=== PATIENT | male | born 1955 | race Caucasian/White ===

== ENCOUNTER 2019-01-01 14:28 | Outpatient (CLI) | payer MEDICARE ==
--- NOTE | 2019-01-01 15:43 | CT ---
CT OF ABDOMEN AND PELVIS PERFORMED WITHOUT CONTRAST ENHANCEMENT: Date: 01/01/19 COMPARISON: 03/09/18 study. HISTORY: Abdominal pain and hematuria. History of bladder cancer. Now complaining of left lower quadrant pain. FINDINGS: The lung bases are clear. The liver, spleen, and pancreas regions appear unremarkable. The gallbladder has been removed. Right and left adrenal glands are normal in appearance. 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 Small c yst also seen,stable.There is dilatation of the left collecting system. The degree of dilatation is s lightly more pronounced than on the prior examination, with dilatation of the left ureter again seen all the way to the bladder. Subtle deformity to the posterolateral bladder, probably on the basis of postoperative change. The bladder is not distended, but there is suggestion of some mild wall thicken ing. The fat stranding seen is fairly similar to the prior examination. It tracks along the left psoa s musculature. It becomes slightly more prominent along the left side of the pelvis, and there has be en a development of left-sided pelvic lymphadenopathy. Some nodes that were location in the region of the external iliac chain measured between 8-10 mm on the prior examination, now measure 2.1 and 2.6 cm, respectively. This is associated with some increased fat stranding along the left side of the pel vis and along the left side of the bladder. I do not see a definitive recurrent bladder mass. These c hanges do not appear to be the underlying cause of the increased dilatation of the left collecting sy stem. IMPRESSION: 1. Increased hydronephrosis of the left collecting system of the horseshoe kidney. The dilatation in cludes the left ureter to the ureterovesical junction. It was present on the prior examination, but h as increased since that study. There is some mild diffuse bladder wall thickening, although I do not see a definite focal discrete bladder mass. 2. There has been development of adenopathy within the left external iliac and left inguinal chain a s detailed above suspicious for neoplastic involvement. POS: [facility]
== END 2019-01-01 14:29 | disposition home or self-care (01) ==
LOC: MADRAD 14:28
PROVIDERS: ATTEND Nurse Practitioner Family
DX: R10.32 Left lower quadrant pain (principal); N13.30 Unspecified hydronephrosis; Q63.1 Lobulated, fused and horseshoe kidney; N32.9 Bladder disorder, unspecified; R59.0 Localized enlarged lymph nodes
CPT/HCPCS: 74176

== ENCOUNTER 2019-09-10 13:53 | Outpatient (CLI) | payer MEDICARE ==
--- NOTE | 2019-09-10 14:11 | RAD ---
EXAM: Two views chest PROVIDED CLINICAL HISTORY: Cough and wheezing COMPARISON: 11/16/2014 FINDINGS: There has been interval placement of a right internal jugular vein Mediport catheter with tip overlyi ng the SVC. The cardiac silhouette and pulmonary vasculature are within normal limits. The lungs are clear. Degenerative changes are seen in the spine. No other interval change. IMPRESSION: No acute cardiopulmonary process.
== END 2019-09-10 13:54 | disposition home or self-care (01) ==
LOC: MADRAD 13:53
PROVIDERS: ATTEND Nurse Practitioner Family
DX: C67.9 Malignant neoplasm of bladder, unspecified (principal); R06.2 Wheezing; R05 Cough
CPT/HCPCS: 71046

== ENCOUNTER 2019-11-20 15:02 | Outpatient (CLI) | payer MEDICARE ==
[2019-11-20 16:28] LABS: ALT (SGPT) 22 U/L (8-55); AST (SGOT) 15 U/L (5-34); Albumin 3.7 g/dL (3.4-4.8); Alkaline Phosphatase 86 U/L (40-110); Anion Gap 22 mmol/L (10-20); BUN (Urea Nitrogen) 20 mg/dL (8.4-25.7); Bilirubin, Total 0.4 mg/dL (0.2-1.2); Calc. Creatinine Clearance 0 mL/min (70-130); Calcium 9.6 mg/dL (7.8-10.44); Carbon Dioxide 21 mmol/L (23-31); Cardiac Risk 3.6 (Less than 4.5); Chloride 100 mmol/L (98-107); Cholesterol 109 mg/dl (< 200 Desired); Estimated GFR-MDRD 55; Globulin 2.6 g/dL (2.4-3.5); HDL Cholesterol 30 mg/dL (>60 Neg Risk); LDL Cholesterol, Calculated 61 mg/dL; Protein, Total 6.3 g/dL (5.8-8.1); Sodium 138 mmol/L (136-145); Triglycerides 89 mg/dL (Less than 150)
[2019-11-20 16:45] LABS: Eosinophils 2 % (0-10); Hemoglobin 9.6 g/dL (14.0-18.0); Hypochromia SLIGHT = 6-15 cells (100X) (0-5/hpf); MDiff Complete? YES; Mean Corpuscular HGB CONC 30.8 g/dL (32.0-36.0); Mean Corpuscular Hemoglobin 30.4 pg (27.0-31.0); Mean Corpuscular Volume 98.7 fL (78.0-98.0); Mean Platelet Volume 7.2 fL (7.4-10.4); Monocytes 6 % (0-10); Neutrophil 86 % (42-75); Platelet Count 438 thou/uL (130-400); Platelet Morphology Comment Appears Increased; RBC Distribution Width 12.4 % (11.5-14.5); Reactive Lymphocytes 5 % (0-10); Red Blood Cell (RBC) Count 3.15 mill/uL (4.70-6.10)
[2019-11-20 16:50] LABS: Glucose 54 mg/dL (80-115)
== END 2019-11-20 15:03 | disposition home or self-care (01) ==
LOC: MADLAB 15:02
PROVIDERS: ATTEND Nurse Practitioner Family
DX: I10 Essential (primary) hypertension (principal); C67.9 Malignant neoplasm of bladder, unspecified
CPT/HCPCS: 80053; 80061; 85025